=== PATIENT | male | born 1990 | race Caucasian/White ===

== ENCOUNTER 2023-09-07 13:34 | Outpatient (CLI) | payer BC, SELFPAY ==
[2023-09-07 17:18] LABS: Liquefaction Semen Complete in 30 min. (<30 minutes); Semen Color Opaque (Grey-opaque); Semen Immotility 50 %; Semen Morphology Result to Follow; Semen Non-Progressive Motility 20 %; Semen Progressive Motility 30 % (>32); Semen Total Motility 50 (>40% (PM+NP)); Semen Viscosity Not Increased (Not Increa.); Sperm Count 76.5 Mil/mL (60-150 million/mL)
[2023-09-13 22:38] LABS: Fructose, Semen 183 mg/dL (150-600)
== END 2023-09-07 13:35 | disposition home or self-care (01) ==
PROVIDERS: PCP Physician Assistant; Visit Provider Physician Assistant
DX: N46.9 Male infertility, unspecified (principal)
CPT/HCPCS: 82757; 88160; 89320

== ENCOUNTER 2023-11-23 11:31 | Outpatient (CLI) | payer BC, SELFPAY ==
[2023-11-23 12:34] LABS: HIV 1 P24 AG Negative (Negative); HIV 1/2 AB Negative (Negative)
[2023-11-23 16:08] LABS: Chlamydia trachomatis NOT DETECTED (NOT DETECTE); Neisseria gonorrhoeae PCR NOT DETECTED (NOT DETECTE)
[2023-11-24 17:14] LABS: Hepatitis B Surface Antigen NON-REACTIVE (NON-REACTIVE); Hepatitis C Virus Antibody NON-REACTIVE (NON-REACTIVE)
[2023-11-27 13:35] LABS: Reference Lab Test Name SYPHILIS AB CASCADE
[2023-11-29 11:05] LABS: Reference Lab Test Name HTLV I/II AB REFLEX
== END 2023-11-23 11:32 | disposition home or self-care (01) ==
LOC: CHSLAB 11:38
PROVIDERS: PCP Physician Assistant
DX: Z00.00 Encounter for general adult medical examination without abnormal findings (principal); Z11.3 Encounter for screening for infections with a predominantly sexual mode of transmission; Z11.4 Encounter for screening for human immunodeficiency virus [HIV]; Z11.59 Encounter for screening for other viral diseases; Z01.84 Encounter for antibody response examination; Z01.83 Encounter for blood typing; Z29.9 Encounter for prophylactic measures, unspecified
CPT/HCPCS: 36415; 86780; 86790; 86803; 86850; 86900; 86901; 87340; 87491; 87591; 87806